=== PATIENT | female | born 1945 | race Caucasian/White ===

== ENCOUNTER 2017-01-18 14:43 | Inpatient (IN) ==
--- NOTE | 2017-01-18 15:39 | Emergency Department Note ---
Disposition Clinical Impression: Rectal bleeding Abdominal mass Qualifiers: Abdominal location: unspecified location Qualified Code(s): R19.00 - Intra- abdominal and pelvic swelling, mass and lump, unspecified site Disposition: Admitted As Inpatient Condition: Fair Referrals: Marquez Duncan MD [Primary Care Provider] - Forms: ED Satisfaction Letter Time of Disposition: 16:44 GI Bleed HPI - General Chief complaint: ED GI Bleed Stated complaint: Rectal bleeding x 1 month Time Seen by Provider: 01/18/17 14:51 Source: patient Limitations: no limitations Nursing Notes Reviewed: Yes Vital Signs Reviewed: Yes - History of Present Illness HPI Narrative: 71-year-old with a history of colon cancer in 2012 review her records show was that stage III. Patient had a resection of the tumor along with chemotherapy and states that she was told that the cancer was gone. She did develop a bleeding sore family doctor who did a rectal and found blood and referred her to . She has no appointment on the of this month. She's had increasing bleeding and didn't feel that she could make it as she is more fatigued. G Pt Subjective Complaint: blood streaked stool Onset (ago): day(s) Consistency: constant Severity: moderate Improves with: rest Worsens with: nothing Associated symptoms: Reports: weakness (Generalized) - Related Data Home Medications Medication Instructions Recorded Confirmed Atorvastatin [Lipitor] 40 mg PO HS 04/20/16 09/17/16 Calcium Carbonate/Vitamin D3 1 each PO BID 04/20/16 09/17/16 [Calcium 500+D Tablet Chew] Cyanocobalamin (B-12) [Vitamin B12] 1,000 mcg PO DAILY 04/20/16 09/17/16 Folic Acid 1 mg PO DAILY 04/20/16 09/17/16 Lisinopril [Zestril] 5 mg PO DAILY 04/20/16 09/17/16 Oxybutynin [Ditropan] 5 mg PO DAILY 04/20/16 09/17/16 Pyridoxine HCl [Vitamin B-6] 100 mg PO DAILY 04/20/16 09/17/16 Topiramate [Topamax] 200 mg PO BID 04/20/16 09/17/16 Lactobacillus Combination No.8 1 cap PO DAILY 09/17/16 09/17/16 [Adult Probiotic] Phenytoin ER [Dilantin ER] 100 mg PO BID 09/17/16 09/17/16 Previous Rx's Medication Instructions Recorded Loperamide [Imodium] 2 mg PO TID #90 capsule 09/17/16 Allergies Allergy/AdvReac Type Severity Reaction Status Date / Time fluoxetine [From Prozac] Allergy Intermediate Confusion Verified 09/17/16 13:20 aspirin Allergy See Verified 09/17/16 13:20 Comments codeine Allergy Rash Verified 09/17/16 13:20 ibuprofen Allergy See Verified 09/17/16 13:20 Comments lansoprazole Allergy See Verified 09/17/16 13:20 Comments [place] Allergy Rash Verified 09/17/16 13:20 celecoxib AdvReac Nausea Verified 09/17/16 13:20 All systems ED: reviewed and negative except as stated. Constitutional: Denies: fever, chills, weakness, weight change Eyes: Denies: eye pain, eye discharge, vision change ENT ED: Denies: ear pain, throat pain, dental pain, hearing loss, epistaxis, congestion, dysphagia Cardiovascular: Denies: chest pain, palpitations, dyspnea on exertion, edema, syncope Respiratory: Denies: cough, dyspnea, wheezes, hemoptysis, stridor Gastrointestinal: Denies: abdominal pain, nausea, vomiting, diarrhea, constipation, hematemesis, melena, hematochezia Genitourinary: Denies: dysuria, frequency, hematuria, discharge Musculoskeletal: Denies: back pain, neck pain, arthralgia, myalgia Integumentary: Denies: rash, abrasion, lesions Neurological: Denies: headache, weakness, numbness, paresthesias, confusion, abnormal gait, vertigo Psychiatric: Denies: anxiety, depression, suicidal thoughts, homicidal thoughts , auditory hallucinations, visual hallucinations Endocrine: Reports: fatigue Hematological/Lymphatic: Denies: easy bleeding, easy bruising Allergic/Immunologic: Denies: facial swelling, urticaria Past Medical History - Past Medical History Medical history: Reports: cancer, diabetes, hyperlipidemia, hypertension, seizures Surgical history: Reports: breast surgery, cancer surgery, cholecystectomy, hysterectomy Psychiatric history: Reports: no psych history - Social History Smoking Status: Never smoker Smokeless Tobacco Status: No Alcohol use: Reports: none Drug use: Reports: none Physical Exam - General Limitations: no limitations General appearance: alert, in no apparent distress - Head Head exam: atraumatic, normocephalic, normal inspection - Eye Eye exam: Present: normal appearance, PERRL, EOMI - ENT ENT exam: normal exam, normal oropharynx, mucous membranes moist - Neck Neck exam: Present: normal inspection, full ROM, trachea midline - Chest Chest inspection: Present: normal inspection, symmetric chest wall rise - Respiratory Respiratory exam: Present: normal lung sounds bilaterally - Cardiovascular Cardiovascular exam: Present: regular rate, normal rhythm, normal heart sounds - Abdominal Exam Abdominal exam: Present: soft, Non-Tender. Absent: tenderness, distention, guarding, rebound, rigidity - Rectal Exam Support Assistant present during exam: Yes Rectal exam: Present: normal inspection, normal rectal tone, bloody stool - Extremities Exam Extremities exam: Present: normal inspection, full ROM. Absent: tenderness, pedal edema - Expanded Lower Extremity Exam Neurovascular/Tendon exam: Absent: motor deficit, sensory deficit, tendon deficit Gait: observed and normal - Back Exam Back exam: Present: normal inspection, full ROM. Absent: tenderness - Neurological Exam Neurological exam: Present: alert, oriented X3 - Psychiatric Psychiatric exam: Present: normal affect, normal mood - Skin Skin exam: Present: warm, dry, intact, normal color Course - Reevaluation(s) Reevaluation #1: 71-year-old female with a history of previous colon cancer comes in with rectal bleeding. CT shows a suspicious mass in the pelvic region of the abdomen and the concern is for recurrent cancer. She will be admitted. Time: 17:17 - Consultations Consultation #1: Discussed with Dr. Verde, admit. Time: 17:17 Vital Signs Temperature 98.2 F 01/18/17 14:44 Pulse Rate 78 01/18/17 14:44 Respiratory Rate 18 01/18/17 14:44 Blood Pressure 147/80 01/18/17 14:44 O2 Sat by Pulse Oximetry 98 01/18/17 14:44 Temperature 98.2 F 01/18/17 14:44 Pulse Rate 62 01/18/17 17:07 Respiratory Rate 16 01/18/17 17:07 Blood Pressure 140/77 01/18/17 17:07 O2 Sat by Pulse Oximetry 99 01/18/17 17:07 Oxygen Delivery Oxygen Delivery Room Air GI Bleed - Lab Data Lab results reviewed: Yes I reviewed the patient's lab results. Result diagrams: 01/18/17 15:42 01/18/17 15:42 Lab Results 01/18/17 01/18/17 01/18/17 Range/Units 15:41 15:42 15:42 WBC 5.9 (4.3-11.1) K/mcL RBC 4.23 (3.82-4.97) M/mcL Hgb 12.1 (11.5-15.4) g/dL Hct 37.7 (35.3-44.9) % MCV 89.1 (83.0-100.0) fL MCH 28.6 (28.0-33.3) pg MCHC 32.1 (31.6-35.5) g/dL RDW 14.3 (11.5-14.5) % Plt Count 177 (140-400) K/mcL MPV 10.3 (9.4-12.4) fL Immature Gran % 0.3 (0-4) % Seg Neutrophils % 60.7 % Lymphocytes % 28.0 % Monocytes % 7.9 % Eosinophils % 2.4 % Basophils % 0.7 % Neutrophils # 3.6 (1.6-8.9) K/mcL Lymphocytes # 1.6 (0.6-4.6) K/mcL Monocytes # 0.5 (0.0-1.3) K/mcL Eosinophils # 0.1 (0.0-0.6) K/mcL Basophils # 0.0 (0.0-0.2) K/mcL PT 11.6 (9.4-12.1) Seconds INR 1.1 APTT 31.4 (26.0-36.0) Seconds Sodium (136-145) mEq/L Potassium (3.5-4.5) mEq/L Chloride (98-109) mEq/L Carbon Dioxide (19-29) mEq/L BUN (7-20) mg/dL Creatinine (0.57-1.11) mg/dL Est GFR ( Amer) (> 60) Est GFR (Non-Af Amer) (> 60) BUN/Creatinine Ratio (6-26) Glucose (70-99) mg/dL Calculated Osmolality (280-300) Calcium (8.6-10.8) mg/dL Magnesium (1.6-2.6) mg/dL Total Bilirubin (0.2-1.2) mg/dL AST (5-34) Units/L ALT (0-55) Units/L Alkaline Phosphatase (38-126) Units/L Serum Total Protein (6.0-8.3) g/dL Albumin (3.5-5.0) g/dL Globulin (2.4-3.5) g/dL Albumin/Globulin Ratio (1.1-2.2) Stool Occult Blood Positive A (Negative) Blood Type Antibody Screen 01/18/17 01/18/17 Range/Units 15:42 15:42 WBC (4.3-11.1) K/mcL RBC (3.82-4.97) M/mcL Hgb (11.5-15.4) g/dL Hct (35.3-44.9) % MCV (83.0-100.0) fL MCH (28.0-33.3) pg MCHC (31.6-35.5) g/dL RDW (11.5-14.5) % Plt Count (140-400) K/mcL MPV (9.4-12.4) fL Immature Gran % (0-4) % Seg Neutrophils % % Lymphocytes % % Monocytes % % Eosinophils % % Basophils % % Neutrophils # (1.6-8.9) K/mcL Lymphocytes # (0.6-4.6) K/mcL Monocytes # (0.0-1.3) K/mcL Eosinophils # (0.0-0.6) K/mcL Basophils # (0.0-0.2) K/mcL PT (9.4-12.1) Seconds INR APTT (26.0-36.0) Seconds Sodium 141 (136-145) mEq/L Potassium 3.7 (3.5-4.5) mEq/L Chloride 112 H (98-109) mEq/L Carbon Dioxide 23 (19-29) mEq/L BUN 14 (7-20) mg/dL Creatinine 0.85 (0.57-1.11) mg/dL Est GFR ( Amer) > 60 (> 60) Est GFR (Non-Af Amer) > 60 (> 60) BUN/Creatinine Ratio 16 (6-26) Glucose 102 H (70-99) mg/dL Calculated Osmolality 293 (280-300) Calcium 9.0 (8.6-10.8) mg/dL Magnesium 1.9 (1.6-2.6) mg/dL Total Bilirubin < 0.3 (0.2-1.2) mg/dL AST 23 (5-34) Units/L ALT 28 (0-55) Units/L Alkaline Phosphatase 135 H (38-126) Units/L Serum Total Protein 7.4 (6.0-8.3) g/dL Albumin 3.4 L (3.5-5.0) g/dL Globulin 4.0 H (2.4-3.5) g/dL Albumin/Globulin Ratio 0.9 L (1.1-2.2) Stool Occult Blood (Negative) Blood Type O NEGATIVE Antibody Screen NEGATIVE - Radiology Data Radiology results reviewed: Yes I reviewed the patient's radiology results. Abdomen/Pelvis CT 01/18/17 15:36 IMPRESSION: Increase in size of nodular solid and cystic structure in the presacral soft tissue extending superiorly from the level of prior surgical changes near the distal rectum, anus marginating the posterior aspect of the distal rectum. Findings concerning for underlying malignancy given history of rectal cancer. Large ventral hernia containing loops of large and small bowel without evidence of obstruction. Stable less than 5 mm nodules at the lung bases nonspecific given patient history. Malignancy cannot be excluded. Recommend correlation to outside studies if available. Continued follow-up recommended. D/ / 01/18/2017 16:29:19 Sherwin Mueller MD / stephanie Interpreting Provider: Sherwin Mueller MD
[2017-01-18 15:56] LABS: Basophils % 0.7 %; Eosinophils # 0.1 K/mcL (0.0-0.6); Eosinophils % 2.4 %; Hematocrit 37.7 % (35.3-44.9); Hemoglobin 12.1 g/dL (11.5-15.4); Immature Granulocytes % 0.3 % (0-4); Lymphocytes # 1.6 K/mcL (0.6-4.6); Mean Corpuscular HGB Conc 32.1 g/dL (31.6-35.5); Mean Corpuscular Hemoglobin 28.6 pg (28.0-33.3); Mean Corpuscular Volume 89.1 fL (83.0-100.0); Mean Platelet Volume 10.3 fL (9.4-12.4); Monocytes # 0.5 K/mcL (0.0-1.3); Monocytes % 7.9 %; Neutrophils # 3.6 K/mcL (1.6-8.9); Platelet Count 177 K/mcL (140-400); Red Blood Count 4.23 M/mcL (3.82-4.97); Red Cell Distribution Width 14.3 % (11.5-14.5); Segmented Neutrophils % 60.7 %
[2017-01-18 16:01] LABS: INR 1.1; Prothrombin Time 11.6 Seconds (9.4-12.1)
[2017-01-18 16:04] LABS: Activated Partial Thrombo Time 31.4 Seconds (26.0-36.0)
[2017-01-18 16:12] LABS: Alanine Aminotransferase 28 Units/L (0-55); Albumin 3.4 g/dL (3.5-5.0); Albumin/Globulin Ratio 0.9 (1.1-2.2); Alkaline Phosphatase 135 Units/L (38-126); Aspartate Amino Transferase 23 Units/L (5-34); BUN/Creatinine Ratio 16 (6-26); Bilirubin,Total < 0.3 mg/dL (0.2-1.2); Blood Urea Nitrogen 14 mg/dL (7-20); Carbon Dioxide 23 mEq/L (19-29); Chloride 112 mEq/L (98-109); Glucose 102 mg/dL (70-99); Magnesium 1.9 mg/dL (1.6-2.6); Osmolality,Calculated 293 (280-300); Potassium 3.7 mEq/L (3.5-4.5); Sodium 141 mEq/L (136-145); Total Protein 7.4 g/dL (6.0-8.3); eGFR For African Americans > 60 (> 60); eGFR For Non-African Americans > 60 (> 60)
[2017-01-18] MEDS ORDERED: Acetaminophen 325 MG TABLET PO PRN (21:14)
[2017-01-18] MEDS ORDERED: Naloxone 0.4 MG/ML INJ IVP PRN (21:15)
--- NOTE | 2017-01-18 21:25 | Internal Med History&Physical ---
Date of Encounter: 01/18/17 Time of Encounter: 21:23 Assessment and Plan (1) Rectal bleeding Current visit: Yes Status: Acute D/w GI. Plan to start bowel prep tonight, plan for scope tomorrow, Clears, IVF, trend H&H (2) Colon cancer Current visit: No Status: Chronic hx of rectal ca, pending GI evaluation, Imaging suspicious for local recurrence Qualifiers: Colon location: unspecified part of colon Qualified Code(s): C18.9 - Malignant neoplasm of colon, unspecified (3) Seizure disorder Current visit: Yes Status: Acute continue meds. close monitoring (4) HTN (hypertension), benign Current visit: Yes Status: Acute continue anti HTN Internal Medicine - H&P: HPI Chief complaint: rectal bleeding History of present illness: Ms. Hawk is a 71 year old female with a hx of rectal cancer in 2011 s/p resection and adjuvant chemotherapy who presents with 2 weeks hx of rectal bleeding. Described mixed bleeding, at times, it would be red blood alone, at other time, it would be blood mixed in with stools. Described as red in color, on the brighter side and is definitely exacerbated by meals. Bleeding is painless. She was suppose to see Dr Varela outpatient but came in today because she was very fatigue and felt lousy. CT A/P in the ED with questionable local recurrence ? Past Med Surg Social Fam HX - Past Medical History Medical history: cancer, diabetes, hyperlipidemia, hypertension, seizures Psychiatric history: no psych history - Past Surgical History Surgical History: breast surgery, cancer surgery, cholecystectomy, hysterectomy - Social History Smoking Status: Never smoker Smokeless Tobacco Status: No Alcohol use: none Drug use: none - Family History Daughter Living Status: Still Living Hx Family Cardiac Disorders: No Hx Family Respiratory Disorders: No Hx Family Cancer: No Hx Family GI Disorders: No Hx Family Genitourinary Disorders: No Hx Family Endocrine Disorder: No Hx Family Musculoskeletal Disorders: No Hx Family Neuromuscular Disorders: No Hx Family Neurologic Disorders: No Hx Family HEENT Disorders: No Hx Family Autoimmune Disorders: No Hx Family Reproductive Disorders: No Hx Family Psychosocial Disorders: No Hx Family Medical Disorders: No Internal Medicine - H&P: Meds Atorvastatin [Lipitor] 40 mg PO HS 04/20/16 [History] Calcium Carbonate/Vitamin D3 [Calcium 500+D Tablet Chew] 1 each PO BID 04/20/16 [History] Cyanocobalamin (B-12) [Vitamin B12] 1,000 mcg PO DAILY 04/20/16 [History] Folic Acid 1 mg PO DAILY 04/20/16 [History] Lisinopril [Zestril] 5 mg PO DAILY 04/20/16 [History] Oxybutynin [Ditropan] 5 mg PO DAILY 04/20/16 [History] Pyridoxine HCl [Vitamin B-6] 200 mg PO DAILY 04/20/16 [History] Topiramate [Topamax] 200 mg PO BID 04/20/16 [History] Lactobacillus Combination No.8 [Adult Probiotic] 1 cap PO DAILY 09/17/16 [ History] Phenytoin ER [Dilantin ER] 100 mg PO BID 09/17/16 [History] Acetaminophen [Tylenol] 650 mg PO Q6HR PRN 01/18/17 [History] Loperamide [Imodium] 2 mg PO QID PRN 01/18/17 [History] Allergies fluoxetine [From Prozac] Allergy (Intermediate, Verified 09/17/16 13:20) Confusion aspirin Allergy (Verified 09/17/16 13:20) See Comments bleeding codeine Allergy (Verified 09/17/16 13:20) Rash ibuprofen Allergy (Verified 09/17/16 13:20) See Comments bleeding lansoprazole Allergy (Verified 09/17/16 13:20) See Comments patient unsure of reaction [place] Allergy (Verified 09/17/16 13:20) Rash celecoxib Adverse Reaction (Verified 09/17/16 13:20) Nausea All Systems PM: A 10-system review of systems was performed and is negative for pertinent findings except as documented above in the HPI. Review of systems: ROS 14 point review of systems reviewed as best as possible given presentation. Pertinent positive or negative as per HPI or otherwise reviewed as negative - Constitutional Vitals: Temp Pulse Resp BP Pulse Ox 98.1 F 61 16 142/76 100 01/18/17 18:46 01/18/17 18:46 01/18/17 18:46 01/18/17 18:46 01/18/17 18:53 Exam: General - AAO x 3 Psych - Appropriate affect/speech. No agitation Eyes - MARIE. Eye lids intact. No scleral icterus ENT - Oral mucosa pink, dentition intact. External ear clear/dry/intact. No thyromegaly Lymphatics - No cervical/inguinal lympadenopathy Neuro - No gross peripheral or central neuro deficits with intact CN 2-12 exam Heart - Sinus. RRR. S1 and S2 present. No added HS/murmurs appreciated. No elevated JVD appreciated. No calf swellings/erythema Lung - Adequate air entry b/l, No crackes/wheezes appreciated GI - Soft, non-tender. No hepatosplenomegaly/ascites. BS+ - No CVA/suprapubic tenderness or palpable bladder distension Skin - Intact. No rash/petechiae/ecchymosis. Warm extremities MSK - Joints with normal ROM. No joint swellings Internal Med - H&P Results - Labs CBC & Chem 7: 01/18/17 15:42 01/18/17 15:42
[2017-01-18] MEDS ORDERED: SODIUM CHLORIDE/NAHCO3/KCL/PEG 4,000 ML SOLN.RECON PO ONE (21:26)
[2017-01-18] MEDS ORDERED: Bisacodyl 10 MG RECTAL SUPPOSITORY RC ONE (21:26)
[2017-01-19] MEDS: Topiramate 100 MG TABLET PO SCH ×4 (00:04→20:50)
[2017-01-19] MEDS: Ringers Solution, Lactated 1,000 ML IVC SCH ×3 (00:04→20:50)
[2017-01-19] MEDS ORDERED: Ondansetron 4 MG/2 ML VIAL IVP SCH (04:00)
[2017-01-19] MEDS ORDERED: Ondansetron 4 MG/2 ML VIAL IVP PRN (05:10)
[2017-01-19 07:48] LABS: BUN/Creatinine Ratio 13 (6-26); Blood Urea Nitrogen 10 mg/dL (7-20); Calcium 9.2 mg/dL (8.6-10.8); Carbon Dioxide 23 mEq/L (19-29); Chloride 111 mEq/L (98-109); Glucose 98 mg/dL (70-99); Osmolality,Calculated 291 (280-300); Potassium 3.7 mEq/L (3.5-4.5); Sodium 141 mEq/L (136-145); eGFR For African Americans > 60 (> 60); eGFR For Non-African Americans > 60 (> 60)
[2017-01-19 08:19] LABS: Basophils % 0.8 %; Eosinophils # 0.2 K/mcL (0.0-0.6); Eosinophils % 3.5 %; Hematocrit 38.1 % (35.3-44.9); Hemoglobin 12.1 g/dL (11.5-15.4); Immature Granulocytes % 0.4 % (0-4); Lymphocytes # 1.3 K/mcL (0.6-4.6); Lymphocytes % 26.6 %; Mean Corpuscular HGB Conc 31.8 g/dL (31.6-35.5); Mean Corpuscular Hemoglobin 28.3 pg (28.0-33.3); Mean Corpuscular Volume 89.2 fL (83.0-100.0); Mean Platelet Volume 10.7 fL (9.4-12.4); Monocytes # 0.3 K/mcL (0.0-1.3); Monocytes % 6.9 %; Platelet Count 166 K/mcL (140-400); Red Blood Count 4.27 M/mcL (3.82-4.97); Red Cell Distribution Width 14.3 % (11.5-14.5); Segmented Neutrophils % 61.8 %
[2017-01-19] MEDS ORDERED: CALCIUM CARBONATE PO SCH (09:00)
[2017-01-19] MEDS ORDERED: VITAMIN D3 PO SCH (09:00)
[2017-01-19] MEDS: Lactobacillus 1 EACH CAP.SPRINK PO SCH (09:13)
[2017-01-19] MEDS: Pyridoxine (B-6) 50 MG TABLET PO SCH (09:13)
[2017-01-19] MEDS: Folic Acid 1 MG TABLET PO SCH (09:13)
[2017-01-19] MEDS: Cyanocobalamin (B-12) 1,000 MCG TABLET PO SCH (09:13)
[2017-01-19 09:29] LABS: Hematocrit 38.3 % (35.3-44.9); Hemoglobin 12.2 g/dL (11.5-15.4)
--- NOTE | 2017-01-19 14:26 | Internal Med Progress Note ---
Date of Encounter: 01/19/17 Time of Encounter: 09:45 - Assessment and plan (1) Rectal bleeding Current Visit: Yes Status: Acute Assessment and plan: Awaiting colonoscopy planned for later today. Hemoglobin levels are stable. We will continue to monitor blood counts. Moderate risk for complications. (2) Rectal cancer Current Visit: Yes Status: Acute Assessment and plan: Patient with history of rectal cancer treated with resection and adjuvant chemotherapy now presented with rectal bleeding and abdominal mass on CT scan concerning for recurrence. We will consult oncology for their recommendations based on colonoscopy results. (3) Seizure disorder Current Visit: Yes Status: Chronic Assessment and plan: Continue seizure precautions. Continue Dilantin (4) HTN (hypertension), benign Current Visit: Yes Status: Chronic Assessment and plan: Blood pressure is well controlled. Continue lisinopril - Subjective Interval history: Patient has been having bowel movements in preparation for her colonoscopy and has been drinking GoLYTELY. She is noted to have some bright red blood in her stools. Denies any dizziness or lightheadedness. No nausea or vomiting. no hematemesis - Constitutional Vitals: Temp Pulse Resp BP Pulse Ox 97.5 F L 55 16 133/87 100 01/19/17 12:20 01/19/17 12:20 01/19/17 12:20 01/19/17 12:20 01/19/17 12:20 General appearance: Present: cooperative, A&O X 3, pleasant, answers questions appropriately - Neck Neck exam general surgery: Present: supple, trachea midline. Absent: lymphadenopathy - Respiratory Respiratory exam: Present: CTAB. Absent: accessory muscle use, rales, rhonchi, wheezes - Cardiovascular Cardiovascular exam: Present: RRR, +S1, +S2. Absent: diastolic murmur, gallop, rubs, systolic murmur - GI/Abdominal GI/Abdominal exam: Present: normal bowel sounds, soft, no peritoneal signs. Absent: distended, tenderness - Extremities Exam Extremities exam: Present: warm, radial pulses palpable and symmetrical. Absent : calf tenderness, cyanotic, pedal edema Internal Medicine: Result - Labs CBC & Chem 7: 01/19/17 09:20 01/19/17 06:46 Labs: Short CBC 01/18/17 01/19/17 01/19/17 Range/Units 21:45 06:46 09:20 WBC 4.8 (4.3-11.1) K/mcL Hgb 11.0 L 12.1 12.2 (11.5-15.4) g/dL Hct 34.0 L 38.1 38.3 (35.3-44.9) % Plt Count 166 (140-400) K/mcL Neutrophils # 3.0 (1.6-8.9) K/mcL BMP 01/19/17 06:46 Sodium 141 Potassium 3.7 Chloride 111 H Carbon Dioxide 23 BUN 10 Creatinine 0.77 Glucose 98 Calcium 9.2 - ABG Interpretation ABG results: PT/INR, D-dimer PT 11.6 Seconds (9.4-12.1) 01/18/17 15:42 Consult Discharge Plan - Plan Referrals: Marquez Duncan MD [Primary Care Provider] -
--- NOTE | 2017-01-19 15:12 | Gastroenterology Consult Note ---
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 She reported that she did not have to take chemotherapy or radiation therapy for anal canal cancer then.She had colonoscopy by Dr Agrawal per Dr Boone ( [employer] Oncologist at [place], [place])-- colonic polyp showed low grade dysplasia. After moving to [place] she had a colonoscopy done by me in June 2016 and at that time lower rectum hyperplastic polyps were seen but no other Obvious pathology. Pt now with rectal mass most probably recurrence of the tumor. Patient will have a sigmoidoscopy done today with possible biopsy of the mass. - Time Spent With Patient Total time spent is greater than 50% in coordination of care (as documented) at patient's floor/unit and/or counseling patient: GI History of Present Illness - Data of Consult Consult date: 01/19/17 Requesting Physician: Stephon Kidd MD - Consult Narrative Reason for consult: Abnormal imaging with possible rectal cancer and rectal bleeding History of present illness: Ms. Hawk is a 71 year old female laying of rectal bleeding for more than a month per patient bleeding in the past was more intermittent she would had with for a day or so than would not have it for couple of days but now bleeding is more consistent. sHe also complaining of pain in her lower abdomen and right groin area bbut per patient she thought that this pain was due to her moving her heavy stuff around. Also admits of's losing weight in the last many month. In the ER had a CT scan done of the abdomen and pelvis concerning for rectal cancer. She will has significant past cancer history. 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 Colonoscopy done as a routine surveillance because of her history by me in June 2016 and no rectal mass was appreciated on that exam. Past Med Surg Social Fam HX - Past Medical History Medical history: cancer, diabetes, hyperlipidemia, hypertension, seizures Psychiatric history: no psych history - Past Surgical History Surgical History: breast surgery, cancer surgery, cholecystectomy, hysterectomy - Social History Smoking Status: Never smoker Smokeless Tobacco Status: No Alcohol use: none Drug use: none - Family History Daughter Living Status: Still Living Hx Family Cardiac Disorders: No Hx Family Respiratory Disorders: No Hx Family Cancer: No Hx Family GI Disorders: No Hx Family Genitourinary Disorders: No Hx Family Endocrine Disorder: No Hx Family Musculoskeletal Disorders: No Hx Family Neuromuscular Disorders: No Hx Family Neurologic Disorders: No Hx Family HEENT Disorders: No Hx Family Autoimmune Disorders: No Hx Family Reproductive Disorders: No Hx Family Psychosocial Disorders: No Hx Family Medical Disorders: No Review of Systems: GI: as per [place] [facility]: denies fever, has some chills EYES: denies yellow discoloration ENT: denies pain with swallowing or difficulty swallowing CARDIO: denies chest pain, palpitations RESP: Shortness of breath with exertion : denies change in color of urine NEURO: 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 HEME: Denies any bruising DERM: denies rash or itching - Constitutional Vitals: Temp Pulse Resp BP Pulse Ox 97.5 F L 55 16 133/87 100 01/19/17 12:20 01/19/17 12:20 01/19/17 12:20 01/19/17 12:20 01/19/17 12:20 - Head Head exam: Present: atraumatic - Eye Eye exam: Present: normal appearance - Neck Neck exam general surgery: Present: supple - Respiratory Additional comments: BiLateral good air entry no crackles or wheezing - Cardiovascular Cardiovascular exam: Present: +S1, +S2 Additional comments: Rate is controlled - GI/Abdominal GI/Abdominal exam: Present: soft Additional comments: Multiple surgical scars from previous surgeries and also she has a large right mid abdomen incisional hernia - Rectal Additional comments: She is a large palpable rectal mass and has blood on the examination finger - Skin Skin exam: Present: dry, warm Results - Labs CBC & Chem 7: 01/19/17 09:20 01/19/17 06:46 Labs: Last Result Calcium 9.2 mg/dL (8.6-10.8) 01/19/17 06:46 Stool Occult Blood Positive (Negative) A 01/18/17 15:41 Entire Visit Hgb 12.2 g/dL (11.5-15.4) 01/19/17 09:20 Hct 38.3 % (35.3-44.9) 01/19/17 09:20 PT 11.6 Seconds (9.4-12.1) 01/18/17 15:42 Total Bilirubin < 0.3 mg/dL (0.2-1.2) 01/18/17 15:42 AST 23 Units/L (5-34) 01/18/17 15:42 ALT 28 Units/L (0-55) 01/18/17 15:42 - ABG ABG results: PT/INR, D-dimer PT 11.6 Seconds (9.4-12.1) 01/18/17 15:42 Consult Discharge Plan - Plan Referrals: Marquez Duncan MD [Primary Care Provider] -
[2017-01-19] MEDS ORDERED: *HR* Midazolam HCl 5 MG/5 ML VIAL IVP ONE (16:08)
[2017-01-19] MEDS ORDERED: *HR* FentaNYL (PF) 100 MCG/2 ML VIAL ONE (16:09)
[2017-01-19] MEDS ORDERED: *HR* Midazolam HCl 5 MG/5 ML VIAL IVP PRN (16:25)
[2017-01-19] MEDS ORDERED: *HR* FentaNYL (PF) 100 MCG/2 ML VIAL IVP PRN (16:25)
[2017-01-19] MEDS ORDERED: Simethicone 40 MG/0.6 ML MLS IR ONE (16:25)
[2017-01-19 18:13] LABS: Hematocrit 34.9 % (35.3-44.9); Hemoglobin 11.2 g/dL (11.5-15.4)
[2017-01-20 00:47] LABS: Hemoglobin 10.8 g/dL (11.5-15.4)
[2017-01-20 04:16] LABS: Hematocrit 30.2 % (35.3-44.9); Hemoglobin 10.1 g/dL (11.5-15.4)
[2017-01-20] MEDS: Ringers Solution, Lactated 1,000 ML IVC SCH (06:45)
[2017-01-20 09:20] LABS: Hematocrit 33.8 % (35.3-44.9); Hemoglobin 11.1 g/dL (11.5-15.4)
[2017-01-20] MEDS: Pyridoxine (B-6) 50 MG TABLET PO SCH (09:33)
[2017-01-20] MEDS: Cyanocobalamin (B-12) 1,000 MCG TABLET PO SCH (09:33)
[2017-01-20] MEDS: Lactobacillus 1 EACH CAP.SPRINK PO SCH (09:33)
--- NOTE | 2017-01-20 09:33 | Internal Med Progress Note ---
Date of Encounter: 01/20/17 Time of Encounter: 09:15 - Assessment and plan (1) Rectal bleeding Current Visit: Yes Status: Acute Assessment and plan: Colonoscopy done. Shows large rectal mass which could be recurrent rectal cancer. Discussed and consulted oncology. We will follow recommendations. Again, continue to monitor blood counts as patient is having continued blood in stools. (2) Rectal cancer Current Visit: Yes Status: Acute Assessment and plan: Patient appears to be having recurrence of rectal cancer. We will follow oncology recommendations (3) Seizure disorder Current Visit: Yes Status: Chronic Assessment and plan: On Dilantin. (4) HTN (hypertension), benign Current Visit: Yes Status: Chronic Assessment and plan: Blood pressure is well controlled (5) Anemia Current Visit: Yes Status: Chronic Assessment and plan: Most likely anemia due to chronic blood loss from rectal cancer Qualifiers: Anemia type: iron deficiency Iron deficiency anemia type: chronic blood loss Qualified Code(s): D50.0 - Iron deficiency anemia secondary to blood loss (chronic) - Subjective Interval history: Complains of some mild abdominal discomfort but overall doing better. Still having some blood-tinged stools. Tolerating diet well. - Constitutional Vitals: Temp Pulse Resp BP Pulse Ox 98.1 F 114 17 115/69 94 01/20/17 07:34 01/20/17 07:34 01/20/17 07:34 01/20/17 07:34 01/20/17 07:34 General appearance: Present: cooperative, A&O X 3, pleasant, answers questions appropriately - Respiratory Respiratory exam: Present: CTAB. Absent: accessory muscle use, rales, rhonchi, wheezes - Cardiovascular Cardiovascular exam: Present: RRR, +S1, +S2. Absent: diastolic murmur, gallop, rubs, systolic murmur - GI/Abdominal GI/Abdominal exam: Present: normal bowel sounds, soft, no peritoneal signs. Absent: distended, tenderness Additional comments: Abdominal hernia present - Extremities Exam Extremities exam: Present: warm, radial pulses palpable and symmetrical. Absent : calf tenderness, cyanotic, pedal edema - Neurological Exam Neurological exam: Present: alert, oriented X3, no focal deficits. Absent: facial droop, speech deficit Internal Medicine: Result - Labs CBC & Chem 7: 01/20/17 09:03 01/19/17 06:46 Labs: Short CBC 01/19/17 01/19/17 01/20/17 Range/Units 09:20 18:07 00:40 Hgb 12.2 11.2 L 10.8 L (11.5-15.4) g/dL Hct 38.3 34.9 L 33.0 L (35.3-44.9) % 01/20/17 01/20/17 Range/Units 04:05 09:03 Hgb 10.1 L 11.1 L (11.5-15.4) g/dL Hct 30.2 L 33.8 L (35.3-44.9) % - ABG Interpretation ABG results: PT/INR, D-dimer PT 11.6 Seconds (9.4-12.1) 01/18/17 15:42 Consult Discharge Plan - Plan Referrals: Marquez Duncan MD [Primary Care Provider] -
[2017-01-20] MEDS: Topiramate 100 MG TABLET PO SCH ×2 (09:34→21:05)
[2017-01-20] MEDS: Folic Acid 1 MG TABLET PO SCH (09:34)
[2017-01-20] MEDS: Cholecalciferol (D-3) 1,000 UNIT TABLET PO SCH (09:34)
[2017-01-20 16:11] LABS: Hematocrit 34.8 % (35.3-44.9); Hemoglobin 11.4 g/dL (11.5-15.4)
[2017-01-21 05:48] LABS: Folate 17.4 ng/mL (7.0-31.4)
[2017-01-21] MEDS: Pyridoxine (B-6) 50 MG TABLET PO SCH (08:48)
[2017-01-21] MEDS: Topiramate 100 MG TABLET PO SCH (08:48)
[2017-01-21] MEDS: Cholecalciferol (D-3) 1,000 UNIT TABLET PO SCH (08:49)
[2017-01-21] MEDS: Lactobacillus 1 EACH CAP.SPRINK PO SCH (08:49)
[2017-01-21] MEDS: Folic Acid 1 MG TABLET PO SCH (08:49)
[2017-01-21] MEDS: Cyanocobalamin (B-12) 1,000 MCG TABLET PO SCH (08:49)
--- NOTE | 2017-01-21 10:10 | Oncology Inp Consult Note ---
Date of Encounter: 01/21/17 Time of Encounter: 09:50 Assessment and Plan (1) Rectal mass Status: Acute Assessment and plan: I discussed with Ms. Hawk and her niece the results of her recent imaging and endoscopic procedure revealing results highly concerning for local recurrence of her prior anal cancer; although another primary or colon cancer needs to be excluded. I explained her too that her recent CT scans were suboptima due to lack of IV or PO contrast. She was explained that if pathology results are consistent with anal cancer ( and CT scan with contrast do not show lesions suggestive of distant metastatic disease), her diagnosis would be consistent with local recurrence. We discussed the management of local recurrence that may include chemoradiation, or surgical excision ( APR). She expressed her concerns about receiving chemotherapy and/or radiation ( " it would kill me" ) due to potential side effects, but was in agreement to discuss pros and cons and explore this options once the pathology results and repeated imaging is available. I emphasize about the importance of following with medical oncologist Dr. Doty to review the pathology results and discuss treatment options. Recommendations: - Follow up pathology results of rectal mass - CT Chest/Abdomen and pelvis with IV contrast - Follow up with Dr. Doty as outpatient. (2) Rectal bleeding Status: Acute Assessment and plan: - bleeding has stopped. Hemoglobin levels remain stable. - Continue management as per primary team and GI. (3) Colon cancer Status: Chronic Assessment and plan: I doubt this is recurrence of her prior colon cancer ( in view that her cancer was located in transverse colon and lack of lymphadenopathies in CT scan, although the quality was suboptimal due to lack of IV contrast). - Follow up pathology results as described above. Qualifiers: Colon location: unspecified part of colon Qualified Code(s): C18.9 - Malignant neoplasm of colon, unspecified - Data of Consult Requesting Physician: Stephon Kidd MD Primary Care Provider: Marquez Duncan MD - Consult Narrative Reason for consult: management of rectal mass History of present illness: Ms. 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 FOLFOX) 12 sessions under the care of Dr. Boone at [facility], and history of anal cancer s/p local excision ( as per patient in Jul 2015, but not operative or pathology report available in our records) presenting to [facility] due to rectal bleeding. Ms. Hawk underwent a colonoscopy that revealed a rectal/anal mass concerning for local recurrence of her anal cancer; she underwent biopsy procedure from rectal mass on 01/18/17, results are still pending. She was seen with her niece at the bedside. Her initial care was provided by Dr. Boone ( medical oncologist ) and Dr. Vyas ( radiation oncologist). She reports that she suffered significant neuropathy following the administration of adjuvant chemotherapy for her rectal cancer. 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 She reports being told that her cancer could not be removed completely following the surgery in 2015. At that time considerations for chemotherapy and radiation were discussed, however eventually she did not get any of these options. She reports that she was not recommended chemotherapy due to concerns related to her age and co morbidities ( performance status, history of seizure disorder, brain AVM) and after discussion with radiation of possible side effects, the decision was to do not administrate radiation. She was seen at [facility] by Dr. Thibodeaux in September 17, 2016. Surveillance CT pelvis/abdomen revealed a cystic lesion in the pre sacral area of 3.8 x 3.2 cm. Surveillance colonoscopy and biopsies in June 2016 revealed not evidence of local recurrence, with biopsy results consistent with hyperplastic polyps. However, she was expecting her cancer to recur, since she is under the impression of being told by her surgeon ( following anal cancer excision) that it had not been possible to remove all her cancer. Additional work up included a PET scan on 03/24 that showed not changes in pulmonary nodule, and unchange left hepatic lobe lesions. CT abdomen from 04/24 revealed sub centimeter pulmonary node of 7 mm. She reports history of PE, treated with one year of anticoagulation with coumadin with not recurrent thrombotic events. Denies SOB at this time. Reports chronic leg and calf tenderness that she attributes to her underlying neuropathy. Hospital course: she underwent a endoscopic procedure that revealed a rectal mass concerning for local recurrence. Pathology samples in process. hemoglobin levels have remained stable. She underwent a CT abdomen/pelvis without contrast that revealed growth of prior pre sacral lesion :5x3.7 cm; previously 3.8 x 3.2 cm. Past Med Surg Social Fam HX - Past Medical History Medical history: cancer, diabetes, hyperlipidemia, hypertension, seizures Psychiatric history: no psych history - Past Surgical History Surgical History: breast surgery, cancer surgery, cholecystectomy, hysterectomy - Social History Smoking Status: Never smoker Smokeless Tobacco Status: No Alcohol use: none Drug use: none - Family History Daughter Living Status: Still Living Hx Family Cardiac Disorders: No Hx Family Respiratory Disorders: No Hx Family Cancer: No Hx Family GI Disorders: No Hx Family Genitourinary Disorders: No Hx Family Endocrine Disorder: No Hx Family Musculoskeletal Disorders: No Hx Family Neuromuscular Disorders: No Hx Family Neurologic Disorders: No Hx Family HEENT Disorders: No Hx Family Autoimmune Disorders: No Hx Family Reproductive Disorders: No Hx Family Psychosocial Disorders: No Hx Family Medical Disorders: No Medications and Allergies Atorvastatin [Lipitor] 40 mg PO HS 04/20/16 [History] Calcium Carbonate/Vitamin D3 [Calcium 500+D Tablet Chew] 1 each PO BID 04/20/16 [History] Cyanocobalamin (B-12) [Vitamin B12] 1,000 mcg PO DAILY 04/20/16 [History] Folic Acid 1 mg PO DAILY 04/20/16 [History] Lisinopril [Zestril] 5 mg PO DAILY 04/20/16 [History] Oxybutynin [Ditropan] 5 mg PO DAILY 04/20/16 [History] Pyridoxine HCl [Vitamin B-6] 200 mg PO DAILY 04/20/16 [History] Topiramate [Topamax] 200 mg PO BID 04/20/16 [History] Lactobacillus Combination No.8 [Adult Probiotic] 1 cap PO DAILY 09/17/16 [ History] Phenytoin ER [Dilantin ER] 100 mg PO BID 09/17/16 [History] Acetaminophen [Tylenol] 650 mg PO Q6HR PRN 01/18/17 [History] Loperamide [Imodium] 2 mg PO QID PRN 01/18/17 [History] Allergies fluoxetine [From Prozac] Allergy (Intermediate, Verified 09/17/16 13:20) Confusion aspirin Allergy (Verified 09/17/16 13:20) See Comments bleeding codeine Allergy (Verified 09/17/16 13:20) Rash ibuprofen Allergy (Verified 09/17/16 13:20) See Comments bleeding lansoprazole Allergy (Verified 09/17/16 13:20) See Comments patient unsure of reaction [place] Allergy (Verified 09/17/16 13:20) Rash celecoxib Adverse Reaction (Verified 09/17/16 13:20) Nausea Constitutional: Present: fatigue Cardiovascular: Absent: chest pain with activity, diaphoresis, irregular heart rhythm Respiratory: Absent: cough, hemoptysis Gastrointestinal: Present: hematochezia Musculoskeletal: Present: myalgias Neurological: Present: convulsions, paresthesias Psychiatric: Absent: confusion, depression Endocrine: Present: fatigue Hematologic/Lymphatic: Present: as per HPI Oncology - Exam - Constitutional Vitals: Temp Pulse Resp BP Pulse Ox 97.8 F 54 18 109/73 97 01/21/17 06:32 01/21/17 06:32 01/21/17 06:32 01/21/17 06:32 01/21/17 06:32 - ENT ENT exam: Present: normal oropharynx - Neck Neck exam: Present: normal inspection - Respiratory Respiratory exam: Present: CTAB - Cardiovascular Cardiovascular exam: Present: RRR - GI/Abdominal GI/Abdominal exam: Present: normal bowel sounds. Absent: organomegaly - Expanded GI/Abdominal Exam GI/Abdominal exam: Absent: ascites, tenderness at McBurney's Point - Extremities Exam Extremities exam: Present: normal inspection, tenderness - Neurological Exam Neurological exam: Present: alert, oriented X3, no focal deficits - Psychiatric Psychiatric exam: Present: normal affect Oncology - Results - Labs Labs: Short CBC 01/20/17 Range/Units 15:49 Hgb 11.4 L (11.5-15.4) g/dL Hct 34.8 L (35.3-44.9) % Consult Discharge Plan - Plan Referrals: Marquez Duncan MD [Primary Care Provider] -
--- NOTE | 2017-01-21 11:36 | Discharge Summary ---
Date of Encounter: 01/21/17 Time of Encounter: 11:33 - Discharge Diagnosis (1) Rectal bleeding Priority: Primary Status: Acute (2) Rectal cancer Priority: Secondary Status: Acute (3) Seizure disorder Priority: Secondary Status: Chronic (4) HTN (hypertension), benign Priority: Secondary Status: Chronic (5) Anemia Priority: Secondary Status: Chronic Qualifiers: Anemia type: iron deficiency Iron deficiency anemia type: chronic blood loss Qualified Code(s): D50.0 - Iron deficiency anemia secondary to blood loss (chronic) - Discharge Medications Home Medications: Atorvastatin [Lipitor] 40 mg PO HS 04/20/16 [History] Calcium Carbonate/Vitamin D3 [Calcium 500+D Tablet Chew] 1 each PO BID 04/20/16 [History] Cyanocobalamin (B-12) [Vitamin B12] 1,000 mcg PO DAILY 04/20/16 [History] Folic Acid 1 mg PO DAILY 04/20/16 [History] Lisinopril [Zestril] 5 mg PO DAILY 04/20/16 [History] Oxybutynin [Ditropan] 5 mg PO DAILY 04/20/16 [History] Pyridoxine HCl [Vitamin B-6] 200 mg PO DAILY 04/20/16 [History] Topiramate [Topamax] 200 mg PO BID 04/20/16 [History] Lactobacillus Combination No.8 [Adult Probiotic] 1 cap PO DAILY 09/17/16 [ History] Phenytoin ER [Dilantin ER] 100 mg PO BID 09/17/16 [History] Acetaminophen [Tylenol] 650 mg PO Q6HR PRN 01/18/17 [History] Loperamide [Imodium] 2 mg PO QID PRN 01/18/17 [History] Allergies/Adverse Reactions: Allergies fluoxetine [From Prozac] Allergy (Intermediate, Verified 09/17/16 13:20) Confusion aspirin Allergy (Verified 09/17/16 13:20) See Comments bleeding codeine Allergy (Verified 09/17/16 13:20) Rash ibuprofen Allergy (Verified 09/17/16 13:20) See Comments bleeding lansoprazole Allergy (Verified 09/17/16 13:20) See Comments patient unsure of reaction [place] Allergy (Verified 09/17/16 13:20) Rash celecoxib Adverse Reaction (Verified 09/17/16 13:20) Nausea Procedures/tests Complete & Pending: Procedures Performed prior 72 hours Category Date Time Status CT abd pelvis w iv no oral [CT] Stat Cat Scan 01/21/17 10:09 Draft Date of admission: 01/18/17 21:15 Primary care physician: Marquez Duncan MD Consults: 01/18/17 21:22 Consult to Gastroenterology [CONS] Routine Consulting Provider: Gastroenterology Kiara Reason for Consult: rectal bleed Call Completed: Yes 01/19/17 14:22 Consult to Oncology Hematology [CONS] Routine Consulting Provider: Omar Henderson Reason for Consult: Rectal cancer with possible recurrence Time Notified: 14:23 Call Completed: Yes Discharging clinician: Stephon Kidd Anticipated date of discharge: 01/21/17 - Patient Status Disposition: Home, Self-Care Condition: Good Functional capacity at discharge: independent ambulation Overall status at discharge: patient is progressing back to baseline - Discharge Instructions Follow Up With: Marquez Duncan MD [Primary Care Provider] - (in 1-2 weeks) Adonis Benito MD [Partnered Physician] - (in 1-2 weeks) Hospital course: Ms. Hawk is a 71 year old female patient with a history of rectal cancer that was Treated previously with resection and chemotherapy adjuvant chemotherapy was admitted here with rectal bleeding. Her blood counts have remained stable. Patient was evaluated by GI and underwent colonoscopy after a CT scan of the abdomen and pelvis showed possible rectal mass. The colonoscopy showed an ulcerated nonobstructing large mass in the anal canal/distal rectum. This was biopsied. Oncology was consulted. Pathology results are currently pending. As the patient's blood counts have remained stable, she is stable to be discharged home. She will follow up with oncology for further management. - Time Spent with Patient Total time spent providing and/or coordinating discharge services: Greater than 30 minutes (35 min) - Constitutional Vitals: Temp Pulse Resp BP Pulse Ox 97.8 F 54 18 109/73 97 01/21/17 06:32 01/21/17 06:32 01/21/17 06:32 01/21/17 06:32 01/21/17 06:32 General appearance: Present: cooperative, A&O X 3, pleasant, answers questions appropriately - Neck Neck exam general surgery: Present: supple, trachea midline. Absent: lymphadenopathy - Respiratory Respiratory exam: Present: CTAB. Absent: accessory muscle use, rales, rhonchi, wheezes - Cardiovascular Cardiovascular exam: Present: RRR, +S1, +S2. Absent: diastolic murmur, gallop, rubs, systolic murmur - GI/Abdominal GI/Abdominal exam: Present: normal bowel sounds, soft, no peritoneal signs. Absent: distended, tenderness - Extremities Exam Extremities exam: Present: warm, radial pulses palpable and symmetrical. Absent : calf tenderness, cyanotic, pedal edema - Skin Skin exam: Present: dry, intact, pallor - VTE Documentation of Mechanical Device: Intermittent pneumatic compression device
[2017-01-21 11:59] VITALS: BP 128/85
[2017-01-21 13:53] LABS: Carcinoembryonic Antigen 1.2 ng/mL (0-5.0)
== END 2017-01-21 15:05 | disposition home or self-care (01) | DRG 376 ==
LOC: EMEROO 14:43 → 3ANU 14:43 → SUATTDRO 21:15
PROVIDERS: ADMIT Internal Medicine Endocrinology, Diabetes & Metabolism; ATTEND Internal Medicine
PROC: ENDOCBX (2017-01-19 16:00)